=== PATIENT | female | born 1990 | race Caucasian/White ===

== ENCOUNTER 2016-12-03 11:52 | Emergency (ER) | payer SELFPAY ==
[2016-12-03 11:56] VITALS: BP 113/77; BMI 24.7
--- NOTE | 2016-12-03 12:18 | DR.GENAD ---
HPI - PCP Primary Care Physician: CHRISTIANNE - HPI Comment HPI Comment: Persistent left ear pain with temp to 102.3 over the past 2-3 days which acutely worsened this morning when she awakened with drainage onto her pillow; sound has been muffled on that side and she's having some sore throat and has been coughing for the past four to five days; no rash, headache, neck pain, abd pain, n/v/d. - Complaint/Symptoms Chief Complaint:: COUGH, LEFT EAR INFECTION IT IS DRAINGING, FEVER - Source History Provided: Patient - Mode of Arrival Mode of Arrival: Ambulatory - Timing Onset of Chief Complaint: 12/03/16 PMH - PMH Past Medical History: No Past Surgical History: No - Family History History of Family Medical Conditions: No - Social History Does patient currently use any type of tobacco product: Yes Type of Tobacco Use: Cigarettes Does any household member use tobacco: No Alcohol Use: Rarely Do you use any recreational Drugs:: No Lives With: Family Lives Where: Home - infectious screening In the last 2 months have you had wt loss of >10#?: NO Have you had fever, night sweats or hemotysis?: No Have you traveled outside the country in the last 6 months?: No Isolation: Standard ROS - Review of Systems Constitutional: Fever, Malaise ENTM: See HPI, Ear Pain, Ear Discharge Respiratoy: See HPI, Productive Cough Cardiovascular: No Symptoms Reported Gastrointestinal/Abdominal: No Symptoms Reported Neurological: No Symptoms Reported Integumentary: No Symptoms Reported PE - Vital Signs Vitals: Temperature 100.4 F Pulse Rate 116 Respiratory Rate 20 Blood Pressure 113/77 O2 Sat by Pulse Oximetry 98 - General Limitations: No Limitations General Appearance: Alert, In No Apparent Distress - Head Head Exam: Normal Inspection - Eyes Eye exam: Normal Appearance - ENT External Ear Exam: Normal External Inspection TM/Canal Exam: Left Erythema, Left Effusion (with multiple fluid bubbles), Left Canal Drainage (purulent) Mouth Exam: Normal Inspection Throat Exam: Normal Inspection - Neck Neck Exam: Normal Inspection - Respiratory Respiratory Exam: Normal Lung Sounds Bilat Respiratory Exam: Bilateral Clear to Auscultation - Cardiovascular Cardiovascular Exam: Regular Rate, Normal Rhythm - Abdominal Exam Abdominal Exam: Normal Inspection - Extremities Extremities Exam: Normal Inspection - Diagnosis Discharge Problem: Left otitis media Qualifiers: Otitis media type: serous Chronicity: acute Recurrence: not specified as recurrent Qualified Code(s): H65.02 - Acute serous otitis media, left ear - Discharge Plan Condition: Stable Prescriptions: Amoxicillin & Pot Clavulanate [AUGMENTIN TAB 875 mg/125 mg *] 1 tab PO BID #20 tab [id number] (Otic) [Cortisporin Otic Susp] 3 drop AFF EAR TID #1 ea - Follow ups/Referrals Follow ups/Referrals: NFD,None [Primary Care Provider] - 3 days - Instructions Instructions: Serous Otitis Media Additional Instructions: avoid q tips use cotton ball when taking shower follow up with ent if symptoms persist
== END 2016-12-03 12:29 | disposition home or self-care (01) ==
LOC: ER 12:01
DX: H65.02 Acute serous otitis media, left ear (principal)
CPT/HCPCS: 99281; 99282